=== PATIENT | male | born 1990 | race Caucasian/White ===

== ENCOUNTER 2024-04-13 09:51 | Emergency (ER) | payer MEDICAID, SELFPAY ==
[2024-04-13 10:16] VITALS: BP 106/63; PULSE 99; RESP 16; TEMP 36.8; O2SAT 98
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
[2024-04-13 10:43] LABS: Appearance Urine Clear (Clear); Bilirubin Urine Negative (Negative); Blood Urine Negative (Negative); Color Urine Yellow (Yellow); Glucose Urine Negative (Negative); Ketones Urine Negative (Negative); Leukocyte Esterase Urine Negative (Negative); Nitrite Urine Negative (Negative); Protein Urine 2+ (Negative); Specific Gravity Urine >= 1.030 (1.000-1.030); Urobilinogen Urine 0.2 (0.2-1.0); pH Urine 5.5 (5.0-8.5)
[2024-04-13 11:06] LABS: RBC Urine 0-2 (0-2); WBC Urine 0-2 (0-5)
[2024-04-13 11:24] LABS: Basophils Absolute Auto 0.05 K/uL (0.00-0.30); Basophils Percent Auto 0.9 % (0.0-3.0); Eosinophils Absolute Auto 0.08 K/uL (0.00-0.50); Eosinophils Percent Auto 1.4 % (0.0-7.0); Hematocrit 38.9 % (37.0-53.0); Hemoglobin* 13.1 gm/dL (13.5-17.5); Immature Granulocytes Abs Auto 0.06 K/uL (0.00-0.30); Immature Granulocytes Pct Auto 1.1 %; Lymphocytes Percent Auto 19.7 % (20-44); Mean Corpuscular HGB Conc 34 gm/dL (32-36); Mean Corpuscular Hemoglobin 30 pg (26-34); Mean Corpuscular Volume 89 fL (80-100); Monocytes Percent Auto 8.5 % (0.0-11.0); Neutrophils Absolute Auto 3.85 K/uL (1.7-7.0); Neutrophils Percent Auto 68.4 % (42.0-72.0); Platelet Count* 314 K/uL (140-440); RDW Coefficient of Variation % 12.7 % (11.5-15.5); Red Blood Count 4.38 m/uL (4.30-5.90); White Blood Count* 5.63 K/uL (4.50-11.00)
[2024-04-13 11:29] LABS: Slide Review Reflex No
[2024-04-13 11:34] LABS: Albumin* 4.7 g/dL (3.3-5.0); Chloride* 98 mmol/L (96-114)
[2024-04-13 11:35] LABS: Potassium* 3.9 mmol/L (3.6-5.1); Sodium* 135 mmol/L (135-149)
[2024-04-13 11:37] LABS: Blood Urea Nitrogen* 18 mg/dL (5-24); Creatinine* 0.6 mg/dL (0.5-1.5); Estimated Glomerular Filt Rate 132 ml/min
[2024-04-13 11:38] LABS: Alanine Aminotransferase* 34 U/L (4-50); Alkaline Phosphatase* 60 U/L (40-150); Anion Gap 9 mEq/L (7-15); Aspartate Amino Transferase* 26 U/L (12-35); Bilirubin Direct* 0.1 mg/dL (0.0-0.5); Bilirubin Total* 0.5 mg/dL (0.1-1.5); Calcium* 9.6 mg/dL (8.4-10.6); Carbon Dioxide* 28 mmol/L (20-32); Glucose* 104 mg/dL (60-115); Lipase* 45 U/L (23-300); Total Protein* 7.3 g/dL (6.0-8.3)
[2024-04-13 11:41] LABS: C Reactive Protein* < 0.5 mg/dL (0.5-1.0)
[2024-04-13 13:02] LABS: Chlamydia DNA Amplified* NOT DETECTED (No Detected); GC DNA Amplified* NOT DETECTED (No Detected)
== END 2024-04-13 13:46 | disposition home or self-care (01) ==
PROVIDERS: Emergency Provider Family Medicine
DX: J04.0 Acute laryngitis (principal); R05.9 Cough, unspecified; R55 Syncope and collapse
CPT/HCPCS: 36415; 71046; 74018; 80048; 80076; 81001; 83690; 85025; 86140; 87491; 87591; 99284

== ENCOUNTER 2024-04-26 10:48 | Emergency (ER) | payer MEDICAID, SELFPAY ==
[2024-04-26 11:05] VITALS: BP 93/57; PULSE 96; RESP 18; TEMP 36.7; O2SAT 99
--- NOTE | 2024-04-26 11:46 | ED.GENADULT ---
HPI - General Adult General Time Seen by Provider: 11:46 Date Seen: 04/26/24 Chief complaint: Unspecified Complaint, Adult Stated complaint: Elevated BP, HR. bowel Time Seen by Provider: 04/26/24 11:45 Source: patient, RN notes reviewed and steward/stewardess second Mode of arrival: ambulatory Limitations: no limitations History of Present Illness HPI narrative: Gilberto yung is a very pleasant 33-year-old who is currently in our local recovery center for methamphetamine abuse who comes to the emergency room with difficulty urinating and having a bowel movement. He notes that his blood pressure has been up and that he tries to urinate every hour and there is only a little bit that comes out. He also notes that he has been trying to have a bowel movement but that only is a little bit as well. He did see a specialist after a previous visit in early April for the same symptoms. It does not sound like they really had much to change or offer. He does note that he had heartburn at that time and he is now on a medication and that seems to be better. I assume that is omeprazole listed in his chart. Hipolito notes that this has been ongoing for over a year. He does not have fever with this but has experienced to 20 kg weight loss. He does not think his belly is bloated although he says he had is not passing a lot of gas. He has not noticed any blood in his stool. He did try stool softener prescribed last time which he states is a powder. Yesterday his brought him some tablets which she stated were for constipation but he has not taken them yet. He denies painful urination and he has no abdominal pain, just the urge to defecate and urinate. Patient notes that he is in treatment for marijuana and methamphetamine abuse. He enter treatment 15 days ago. He had quit smoking cigarettes 2 years ago but has since restarted the cigarettes as he states they help him go to the bathroom. He notes he had had syphilis and gonorrhea previously but has been tested and is negative. I am unclear if he has had unprotected sex in the last 15 days despite asking. Related Data Previous Rx's ?Medication ?Instructions ?Recorded omeprazole 20 mg capsule,delayed 20 mg PO BID #60 caps 04/13/24 release polyethylene glycol 3350 17 17 g PO BID PRN #238 grams 04/13/24 gram/dose oral powder levofloxacin 500 mg tablet 500 mg PO DAILY #10 tabs 04/26/24 tamsulosin 0.4 mg capsule (Flomax) 0.4 mg PO QHS #30 caps 04/26/24 Allergies Allergy/AdvReac Type Severity Reaction Status Date / Time No Known Drug Allergies Allergy Verified 04/26/24 14:45 Review of Systems Status of ROS: Reports: 10 or more systems reviewed and unremarkable except as noted in History and below Const: Reports: change in weight; Denies: fever, chills or fatigue Eyes: Denies: change in vision ENMT: Denies: throat pain, neck pain or nasal congestion Cardio: Denies: chest pain, palpitations, swelling of feet/ankles, lightheadedness or shortness of breath with exertion Resp: Reports: cough (Chronic); Denies: shortness of breath GI: Reports: nausea, heartburn (Improved) and constipation; Denies: abdominal pain, vomiting, diarrhea or blood in stool : Reports: urinary frequency and urinary urgency; Denies: painful urination or blood in urine Musculo: Denies: back pain or neck pain Integ/Breast: Denies: rash Neuro: Denies: headache Endo: Denies: fatigue PFSH PFSH Social History Smoking Status: Current some day smoker What tobacco products do you use: cigarettes How often do you have a drink containing alcohol: never AUDIT-C Alcohol total score: 0 Non-prescribed substance use: former substance user Exam Narrative: Exam Narrative: Alert and oriented. We performed this interview with the assistance of steward/stewardess second. EOM is full and pupils equal round. Face symmetrical. No acute distress. Neck is supple. Heart with a regular rate and rhythm and lungs are clear. Abdomen is soft nontender. No masses are palpated. Moving all extremities. Prostate exam without evidence of bogginess, significant discomfort or nodules. Const: Vital Signs, click to edit/add: Vital Signs - 24 hr 04/26/24 11:05 04/26/24 14:09 04/26/24 16:48 Temperature 98.0 F Pulse Rate 93 91 Pulse Rate [Right] 96 Respiratory Rate 18 16 14 Blood Pressure 141/103 H 137/100 H Blood Pressure [Ri ght Upper Arm] 93/57 L Pulse Oximetry 99 95 98 Oxygen Delivery Me thod Room Air Room Air Documenting provider has reviewed patient's vital signs: yes Course Course ED Course: Differential diagnosis includes but is not limited to prostatitis, UTI, anxiety, constipation, GI illness. At this time will check electrolytes, give 1 L of fluid is blood pressure is actually known not high as he initially complained of, check urinalysis, recheck gonorrhea and chlamydia, considering abdominal/pelvic CT with IV contrast. Plan on check of prostate. I did explain the procedure for this with Hipolito. He is agreeable to this Reevaluation(s) Reevaluation #1: Prostate exam does not show significant enlargement or any masses. Post void bladder ultrasound shows greater than 250 mL. At this time will proceed with the CT of the abdomen and consult with urology. Reevaluation #2: CT of the abdomen is reassuring and is not show any evidence of constipation. Repeat postvoid bladder ultrasound shows 227 mL. Consultations Consultation #1: At the pleasure of speaking with [facility]rology at [facility]. Agrees with initiation of antibiotic for possible UTI and or prostatitis. Also suggest use of Flomax. Also suggest follow-up with urology. Vital Signs Vital signs: Initial Vital Signs Temperature 98.0 F 04/26/24 11:05 Temperature Source Temporal Artery Scan 04/26/24 11:05 Pulse Rate 96 04/26/24 11:05 Respiratory Rate 18 04/26/24 11:05 Blood Pressure 93/57 L 04/26/24 11:05 Blood Pressure Mean 69 L 04/26/24 11:05 Pulse Oximetry 99 04/26/24 11:05 Oxygen Delivery Method Room Air 04/26/24 11:05 Vital Signs Temperature 98.0 F 04/26/24 11:05 Pulse Rate 96 04/26/24 11:05 Respiratory Rate 18 04/26/24 11:05 Blood Pressure 93/57 L 04/26/24 11:05 Pulse Oximetry 99 04/26/24 11:05 Oxygen Delivery Method Room Air 04/26/24 11:05 Temperature 98.0 F 04/26/24 11:05 Pulse Rate 91 04/26/24 16:48 Respiratory Rate 14 04/26/24 16:48 Blood Pressure 137/100 H 04/26/24 16:48 Pulse Oximetry 98 04/26/24 16:48 Oxygen Delivery Method Room Air 04/26/24 16:48 Medications Administered Medications: Discontinued Medications Generic Name Dose Route Start Last Admin Trade Name Jani PRN Reason Stop Dose Admin Levofloxacin 500 mg 04/26/24 16:07 04/26/24 16:35 Levofloxacin 500 Mg Tablet PO 04/26/24 16:08 500 mg ONCE ONE Administration Tamsulosin HCl 0.4 mg 04/27/24 09:00 04/26/24 16:35 Tamsulosin Hcl 0.4 Mg Capsule PO 0.4 mg DAILY XIANG Administration Medical Decision Making MDM Narrative Medical decision making narrative: 1. Urinary retention- at this time urinalysis does not show evidence of UTI but patient certainly is describing urgency frequency and I am wondering if we are actually dealing with a prostatitis. Culture will be pending. Will treat with Levaquin 500 mg daily for 10 days and Flomax 0.4 mg daily for 30 days. Patient will need to follow-up with urology as he may need cystoscopy to rule out any urinary stricture. He is agreeable to this. 2. Constipation -No evidence of constipation today. However previously he did and therefore I request that he continue MiraLax as directed. 3. History of STI -chlamydia and gonorrhea repeated today and are pending. addendum: Negative for chlamydia gonorrhea 4. History of methamphetamine and marijuana abuse- currently a resident at treatment center here in [place]. U tox is negative today. 5. Disposition -home at this time. Note that staff member from the treatment center was here and Hipolito requested that this staff member do interpretation for him. I did ask if he wanted privacy but he felt that it was fine to talk freely in front of this person. Return for worsening symptoms and as needed. Medical Records Medical records reviewed: Yes I reviewed the patient's medical records Lab Data Lab results reviewed: Yes I reviewed the patient's lab results Labs: Lab Results 04/26/24 04/26/24 04/26/24 Range/Units 12:39 13:00 13:03 WBC 4.94 (4.50-11.00) K/uL RBC 4.41 (4.30-5.90) m/uL Hgb 13.1 L (13.5-17.5) gm/dL Hct 38.7 (37.0-53.0) % MCV 88 (80-100) fL MCH 30 (26-34) pg MCHC 34 (32-36) gm/dL RDW Coeff of Luciano 12.4 (11.5-15.5) % Plt Count 312 (140-440) K/uL Neut % (Auto) 64.2 (42.0-72.0) % Lymph % (Auto) 25.1 (20-44) % Waldo % (Auto) 7.9 (0.0-11.0) % Eos % (Auto) 1.6 (0.0-7.0) % Baso % (Auto) 1.0 (0.0-3.0) % Neut # (Auto) 3.17 (1.7-7.0) K/uL Lymph # (Auto) 1.24 (0.90-2.90) K/uL Waldo # (Auto) 0.40 (0.00-0.90) K/UL Eos # (Auto) 0.08 (0.00-0.50) K/uL Baso # (Auto) 0.05 (0.00-0.30) K/uL Abs Immat Gran (auto) 0.01 (0.00-0.30) K/uL Imm/Tot Granulo (auto) 0.2 % Sodium 133 L (135-149) mmol/L Potassium 4.1 (3.6-5.1) mmol/L Chloride 95 L (96-114) mmol/L Carbon Dioxide 32 (20-32) mmol/L Anion Gap 6 L (7-15) mEq/L BUN 19 (5-24) mg/dL Creatinine 0.7 (0.5-1.5) mg/dL Estimated GFR 126 ml/min Glucose 99 (60-115) mg/dL Calcium 9.4 (8.4-10.6) mg/dL Total Bilirubin 0.7 (0.1-1.5) mg/dL AST 19 (12-35) U/L ALT 15 (4-50) U/L Alkaline Phosphatase 54 (40-150) U/L Total Protein 7.4 (6.0-8.3) g/dL Albumin 4.6 (3.3-5.0) g/dL TSH 0.369 (0.270-4.20) uIU/mL Urine Color Light yellow (Yellow) Urine Appearance Clear (Clear) Urine pH 7.0 (5.0-8.5) Ur Specific [place] 1.015 (1.000-1.030) Urine Protein Negative (Negative) Urine Glucose (UA) Negative (Negative) Urine Ketones Negative (Negative) Urine Blood Negative (Negative) Urine Nitrite Negative (Negative) Urine Bilirubin Negative (Negative) Urine Urobilinogen 0.2 (0.2-1.0) Ur Leukocyte Esterase Negative (Negative) Urine RBC 0-2 (0-2) Urine WBC 0-2 (0-5) Ur Squamous Epith Cells None (None-Few) Urine Bacteria None (None) Urine Opiates Screen Negative (Negative) Ur Oxycodone Screen Negative (Negative) Urine Methadone Screen Negative (Negative) Ur Barbiturates Screen Negative (Negative) U Tricyclic Antidepress Negative (Negative) Ur Phencyclidine Scrn Negative (Negative) Ur Amphetamines Screen Negative (Negative) U Methamphetamines Scrn Negative (Negative) U Benzodiazepines Scrn Negative (Negative) Urine Cocaine Screen Negative (Negative) U Marijuana (THC) Screen Negative (Negative) Ur Drug Screen Comment See Note C.trachomatis Ampl DNA NOT DETECTED (No Detected) N.gonorrhoeae Ampl DNA NOT DETECTED (No Detected) Lab Acknowledgement Test Added Imaging Data CT scan - abdomen: Attestation: I have reviewed the pertinent imaging results. My impression: I do not note any acute findings Radiologist's impression: Lower chest: Unremarkable. Liver: Fatty infiltration. Otherwise unremarkable. Gallbladder and bile ducts: Unremarkable. No stones or inflammation. No biliary dilatation. Pancreas: Unremarkable. No mass or inflammation. Spleen: Unremarkable. Normal in size. No masses. Adrenal glands: Unremarkable. No nodules. Kidneys: Unremarkable. No suspicious masses, stones, or hydronephrosis. GI tract: Unremarkable. Normal in caliber. No sign of mass or inflammation. Normal appendix. Vasculature: Abdominal aorta is normal in caliber. Mesenteric arteries are patent. Lymph nodes: No lymphadenopathy. Peritoneum/Abdominal Wall: Unremarkable. No sign of mass or infiltration. No free air or significant free fluid. Pelvis: Unremarkable. Bones: Unremarkable for age. IMPRESSION: Normal CT of the abdomen and pelvis. Bowel pattern is normal. No signs of constipation. Discharge Plan Discharge Clinical Impression: Urinary retention Patient Disposition: Home, Self-Care Condition: Improved Additional Instructions: We will have you start a medicine called Flomax-this should help you urinate and empty your bladder. We will also do a trial of antibiotics for the treatment of a possible UTI although your urinalysis looks good today. Levaquin 500 mg daily for 10 days will be used for treatment of possible UTI or prostate infection. Flomax will be used to help improve urinary flow. First doses of both of these medications are given in the ER and the remainders will be sent to the [place] pharmacy. You will need to follow-up with a urologist a specialist in the urinary system. If are medicines do not help improve the situation you may need to have a urologist actually look up through the penis and urethra into the bladder. [facility] could help you out with this as well as [facility]. There is no constipation noted on your CT but I would continue your stool softeners at this time. Return as needed for worsening symptoms. Prescriptions: New levofloxacin 500 mg tablet 500 mg PO DAILY Qty: 10 0RF tamsulosin [Flomax] 0.4 mg capsule 0.4 mg PO QHS Qty: 30 2RF No Action omeprazole 20 mg capsule,delayed release(DR/EC) 20 mg PO BID Qty: 60 2RF polyethylene glycol 3350 17 gram/dose powder 17 g PO BID PRNQty: 238 1RF Follow Up/Referrals: Provider,Not a Local [Primary Care Provider] - Stand Alone Forms: [facility] Info Instructions
[2024-04-26 13:09] LABS: Basophils Absolute Auto 0.05 K/uL (0.00-0.30); Eosinophils Absolute Auto 0.08 K/uL (0.00-0.50); Eosinophils Percent Auto 1.6 % (0.0-7.0); Hematocrit 38.7 % (37.0-53.0); Hemoglobin* 13.1 gm/dL (13.5-17.5); Immature Granulocytes Abs Auto 0.01 K/uL (0.00-0.30); Immature Granulocytes Pct Auto 0.2 %; Lymphocytes Absolute Auto 1.24 K/uL (0.90-2.90); Lymphocytes Percent Auto 25.1 % (20-44); Mean Corpuscular HGB Conc 34 gm/dL (32-36); Mean Corpuscular Hemoglobin 30 pg (26-34); Mean Corpuscular Volume 88 fL (80-100); Monocytes Percent Auto 7.9 % (0.0-11.0); Neutrophils Absolute Auto 3.17 K/uL (1.7-7.0); Neutrophils Percent Auto 64.2 % (42.0-72.0); Platelet Count* 312 K/uL (140-440); RDW Coefficient of Variation % 12.4 % (11.5-15.5); Red Blood Count 4.41 m/uL (4.30-5.90); White Blood Count* 4.94 K/uL (4.50-11.00)
[2024-04-26 13:13] LABS: Slide Review Reflex No
[2024-04-26 13:27] LABS: Appearance Urine Clear (Clear); Bilirubin Urine Negative (Negative); Blood Urine Negative (Negative); Color Urine Light yellow (Yellow); Glucose Urine Negative (Negative); Ketones Urine Negative (Negative); Leukocyte Esterase Urine Negative (Negative); Nitrite Urine Negative (Negative); Protein Urine Negative (Negative); Specific Gravity Urine 1.015 (1.000-1.030); Urobilinogen Urine 0.2 (0.2-1.0)
[2024-04-26 13:30] LABS: Albumin* 4.6 g/dL (3.3-5.0); Chloride* 95 mmol/L (96-114)
[2024-04-26 13:31] LABS: Potassium* 4.1 mmol/L (3.6-5.1); Sodium* 133 mmol/L (135-149)
[2024-04-26 13:33] LABS: Anion Gap 6 mEq/L (7-15); Aspartate Amino Transferase* 19 U/L (12-35); Bilirubin Total* 0.7 mg/dL (0.1-1.5); Blood Urea Nitrogen* 19 mg/dL (5-24); Carbon Dioxide* 32 mmol/L (20-32); Creatinine* 0.7 mg/dL (0.5-1.5); Estimated Glomerular Filt Rate 126 ml/min
[2024-04-26 13:34] LABS: Amphetamine Screen Urine Negative (Negative); Barbiturate Screen Urine Negative (Negative); Benzodiazepines Screen Urine Negative (Negative); Cannabinoid Screen Urine Negative (Negative); Cocaine Screen Urine Negative (Negative); Methadone Screen Urine Negative (Negative); Methamphetamines Screen Urine Negative (Negative); Opiate Screen Urine Negative (Negative); Oxycodone Screen Urine Negative (Negative); Phencyclidine Screen Urine Negative (Negative); Tricyclic Antidepressant Urine Negative (Negative)
[2024-04-26 13:34] LABS: Alanine Aminotransferase* 15 U/L (4-50); Alkaline Phosphatase* 54 U/L (40-150); Calcium* 9.4 mg/dL (8.4-10.6); Glucose* 99 mg/dL (60-115); Total Protein* 7.4 g/dL (6.0-8.3)
[2024-04-26 13:37] LABS: RBC Urine 0-2 (0-2); WBC Urine 0-2 (0-5)
[2024-04-26 14:05] LABS: Thyroid Stimulating Hormone* 0.369 uIU/mL (0.270-4.20)
[2024-04-26 14:09] VITALS: BP 141/103; PULSE 93; RESP 16; O2SAT 95
--- NOTE | 2024-04-26 14:20 | CRLHL7_ITS ---
For Patients: As a result of the Century Cures Act, medical imaging exams and procedure reports are released immediately into your electronic medical record. You may view this report before your referring provider. If you have questions, please contact your health care provider. INDICATION: Inability to defecate. TECHNIQUE: CT abdomen and pelvis acquired with 71 cc Isovue 370 IV contrast. COMPARISON: None. FINDINGS: Lower chest: Unremarkable. Liver: Fatty infiltration. Otherwise unremarkable. Gallbladder and bile ducts: Unremarkable. No stones or inflammation. No biliary dilatation. Pancreas: Unremarkable. No mass or inflammation. Spleen: Unremarkable. Normal in size. No masses. Adrenal glands: Unremarkable. No nodules. Kidneys: Unremarkable. No suspicious masses, stones, or hydronephrosis. GI tract: Unremarkable. Normal in caliber. No sign of mass or inflammation. Normal appendix. Vasculature: Abdominal aorta is normal in caliber. Mesenteric arteries are patent. Lymph nodes: No lymphadenopathy. Peritoneum/Abdominal Wall: Unremarkable. No sign of mass or infiltration. No free air or significant free fluid. Pelvis: Unremarkable. Bones: Unremarkable for age. IMPRESSION: Normal CT of the abdomen and pelvis. Bowel pattern is normal. No signs of constipation. Please note that all CT scans at this facility use dose modulation, iterative reconstruction, and/or weight-based dosing when appropriate to reduce radiation dose to as low as reasonably achievable. Dictated by Eric Redman MD @ 04/26/2024 3:12:56 PM (Electronically Signed)
[2024-04-26] MEDS: TAMSULOSIN HCL 0.4 MG CAPSULE PO (16:35)
[2024-04-26] MEDS: levoFLOXacin 500 MG TABLET PO (16:35)
[2024-04-26 16:48] VITALS: BP 137/100; PULSE 91; RESP 14; O2SAT 98
[2024-04-26 18:30] LABS: Chlamydia DNA Amplified* NOT DETECTED (No Detected); GC DNA Amplified* NOT DETECTED (No Detected)
== END 2024-04-26 16:55 | disposition home or self-care (01) ==
PROVIDERS: Emergency Provider Family Medicine
DX: R33.9 Retention of urine, unspecified (principal); K59.00 Constipation, unspecified
CPT/HCPCS: 36415; 51798; 74177; 80053; 80306; 81001; 84443; 85025; 87491; 87591; 99284; A9270; Q9967

== ENCOUNTER 2024-05-05 15:14 | Emergency (ER) | payer MEDICAID, SELFPAY ==
[2024-05-05 15:41] VITALS: BP 97/61; PULSE 92; RESP 18; TEMP 37; O2SAT 99; BMI 26.6
--- NOTE | 2024-05-05 15:52 | ED.ABDPAIN ---
HPI - Abdominal Pain General Time Seen by Provider: 15:53 Date Seen: 05/05/24 Chief Complaint: Abdominal Pain Stated Complaint: Abdominal pain Time Seen by Provider: 05/05/24 15:52 Source: patient Mode of arrival: ambulatory Limitations: no limitations Related Data Previous Rx's ?Medication ?Instructions ?Recorded omeprazole 20 mg capsule,delayed 20 mg PO BID #60 caps 04/13/24 release polyethylene glycol 3350 17 17 g PO BID PRN #238 grams 04/13/24 gram/dose oral powder levofloxacin 500 mg tablet 500 mg PO DAILY #10 tabs 04/26/24 tamsulosin 0.4 mg capsule (Flomax) 0.4 mg PO QHS #30 caps 04/26/24 Allergies Allergy/AdvReac Type Severity Reaction Status Date / Time No Known Drug Allergies Allergy Verified 04/26/24 14:45 PFSH PFSH Social History Smoking Status: Current some day smoker What tobacco products do you use: cigarettes How often do you have a drink containing alcohol: never AUDIT-C Alcohol total score: 0 Non-prescribed substance use: former substance user Exam Const: Vital Signs, click to edit/add: Vital Signs - 24 hr 05/05/24 15:41 Temperature 98.6 F Pulse Rate [Right Pulse Oximeter] 92 Respiratory Rate 18 Blood Pressure [Le ft Upper Arm] 97/61 Pulse Oximetry 99 Oxygen Delivery Me thod Room Air Course Vital Signs Vital signs: Initial Vital Signs Temperature 98.6 F 05/05/24 15:41 Temperature Source Temporal Artery Scan 05/05/24 15:41 Pulse Rate 92 05/05/24 15:41 Pulse Rhythm Regular 05/05/24 15:41 Pulse Strength 3+ Normal 05/05/24 15:41 Respiratory Rate 18 05/05/24 15:41 Blood Pressure 97/61 05/05/24 15:41 Blood Pressure Mean 73 05/05/24 15:41 Blood Pressure Position Sitting 05/05/24 15:41 Pulse Oximetry 99 05/05/24 15:41 Oxygen Delivery Method Room Air 05/05/24 15:41 Vital Signs Temperature 98.6 F 05/05/24 15:41 Pulse Rate 92 05/05/24 15:41 Respiratory Rate 18 05/05/24 15:41 Blood Pressure 97/61 05/05/24 15:41 Pulse Oximetry 99 05/05/24 15:41 Oxygen Delivery Method Room Air 05/05/24 15:41 Temperature 98.6 F 05/05/24 15:41 Pulse Rate 92 05/05/24 15:41 Respiratory Rate 18 05/05/24 15:41 Blood Pressure 97/61 05/05/24 15:41 Pulse Oximetry 99 05/05/24 15:41 Oxygen Delivery Method Room Air 05/05/24 15:41 Discharge Plan Discharge Prescriptions: No Action levofloxacin 500 mg tablet 500 mg PO DAILY Qty: 10 0RF tamsulosin [Flomax] 0.4 mg capsule 0.4 mg PO QHS Qty: 30 2RF omeprazole 20 mg capsule,delayed release(DR/EC) 20 mg PO BID Qty: 60 2RF polyethylene glycol 3350 17 gram/dose powder 17 g PO BID PRNQty: 238 1RF Follow Up/Referrals: Provider,Not a Local [Primary Care Provider] -
--- NOTE | 2024-05-05 16:27 | CRLHL7_ITS ---
For Patients: As a result of the Century Cures Act, medical imaging exams and procedure reports are released immediately into your electronic medical record. You may view this report before your referring provider. If you have questions, please contact your health care provider. INDICATION: Constipation TECHNIQUE: Abdomen Pelvis radiograph 2 views COMPARISON: 04/13/2024 FINDINGS: Bowel: The bowel gas pattern is normal without evidence of bowel obstruction. The pow pelvis is exclude and partially shows an overlying metallic zipper. Soft tissue: No evidence of pneumoperitoneum present. No suspicious calcifications noted. Bone: Unremarkable for age. IMPRESSION: 1. Unremarkable appearance of the visualized abdomen. Dictated by: Akshat Borrero MD @ 05/05/2024 17:26:21 (Electronically Signed)
--- NOTE | 2024-05-05 16:28 | ED.ABDPAIN ---
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 He was seen in this ED for the same symptoms 9 days ago. Was shown to have urinary retention at that time. He was started on antibiotic for possible prostatitis along with Flomax. Did not show any obvious signs of constipation on CT scan. Was discharged home any states he has not had any changes to his symptoms. He still is only having small bowel movements and is urinating every hour due to not emptying his bladder. The symptoms have been going on for 6 weeks now he states. he was supposed to follow-up with urology but has been unable to so far. Is working on getting in with [facility]. States he smokes a cigarette every morning because that makes him vomit and empties his stomach. Will have nausea throughout the day. Does not noticing changes the symptoms when eating or drinking. Does state he a coughing fit today the induced abdominal cramping that has since resolved. Denies fevers, chills, chest pain, shortness of breath, lightheadedness, dizziness. Related Data Previous Rx's ?Medication ?Instructions ?Recorded omeprazole 20 mg capsule,delayed 20 mg PO BID #60 caps 04/13/24 release polyethylene glycol 3350 17 17 g PO BID PRN #238 grams 04/13/24 gram/dose oral powder levofloxacin 500 mg tablet 500 mg PO DAILY #10 tabs 04/26/24 tamsulosin 0.4 mg capsule (Flomax) 0.4 mg PO QHS #30 caps 04/26/24 ondansetron 4 mg disintegrating 4 mg PO Q6H #20 tabs 05/05/24 tablet Allergies Allergy/AdvReac Type Severity Reaction Status Date / Time No Known Drug Allergies Allergy Verified 04/26/24 14:45 Review of Systems Status of ROS Reports: 10 or more systems reviewed and unremarkable except as noted in History and below PFSH PFSH Social History Smoking Status: Current some day smoker What tobacco products do you use: cigarettes How often do you have a drink containing alcohol: never AUDIT-C Alcohol total score: 0 Non-prescribed substance use: former substance user Exam Narrative: Exam Narrative: Const: Well-nourished, Well-developed, in mild distress Eyes: PERRL, no conjunctival injection, and symmetrical lids HENT: Atraumatic external nose and ears. Moist mucous membranes. Neck: Symmetric, trachea midline, No thyromegaly. CVS: RRR, No murmurs or gallops. Peripheral pulses 2+ and equal in all extremities RESP: Unlabored respiratory effort. Clear to auscultation bilaterally. GI: Mild diffuse abdominal tenderness,Nondistended, No rebound or guarding. MSK:Extremities w/o deformity, Normal Active ROM Skin: Warm, Dry. No rashes or lesions. Neuro: Normal Muscle tone, No focal neurological deficits. Psych: Awake, Alert, & Oriented x3. Appropriate mood and affect. Const: Vital Signs, click to edit/add: Vital Signs - 24 hr 05/05/24 15:41 Temperature 98.6 F Pulse Rate [Right Pulse Oximeter] 92 Respiratory Rate 18 Blood Pressure [Le ft Upper Arm] 97/61 Pulse Oximetry 99 Oxygen Delivery Me thod Room Air Course Vital Signs Vital signs: Initial Vital Signs Temperature 98.6 F 05/05/24 15:41 Temperature Source Temporal Artery Scan 05/05/24 15:41 Pulse Rate 92 05/05/24 15:41 Pulse Rhythm Regular 05/05/24 15:41 Pulse Strength 3+ Normal 05/05/24 15:41 Respiratory Rate 18 05/05/24 15:41 Blood Pressure 97/61 05/05/24 15:41 Blood Pressure Mean 73 05/05/24 15:41 Blood Pressure Position Sitting 05/05/24 15:41 Pulse Oximetry 99 05/05/24 15:41 Oxygen Delivery Method Room Air 05/05/24 15:41 Vital Signs Temperature 98.6 F 05/05/24 15:41 Pulse Rate 92 05/05/24 15:41 Respiratory Rate 18 05/05/24 15:41 Blood Pressure 97/61 05/05/24 15:41 Pulse Oximetry 99 05/05/24 15:41 Oxygen Delivery Method Room Air 05/05/24 15:41 Temperature 98.6 F 05/05/24 15:41 Pulse Rate 92 05/05/24 15:41 Respiratory Rate 18 05/05/24 15:41 Blood Pressure 97/61 05/05/24 15:41 Pulse Oximetry 99 05/05/24 15:41 Oxygen Delivery Method Room Air 05/05/24 15:41 MDM - Abdominal Pain MDM Narrative Medical decision making narrative: patient is a 33-year-old male presenting for abdominal pain, polyuria, constipation. He was seen here for the same symptoms Last week. At time CT scan was done showing no concerning abnormalities. There is concerned he could have prostatitis so he was started on antibiotics. Was told to continue take MiraLax and was informed he has a follow-up with Urology. He has not been able follow-up yet. At this time I will check a urinalysis, CBC, CMP along with doing a abdominal x-ray. I do not believe it is needed to do a repeat CT scan as will be unnecessary radiation for patient of this age who just had a CT scan for similar symptoms. We did do a pre and postvoid bladder scan he went from 250 mL to about 75-100 mL. He is having some mild retention but will hold off on placing a Dickinson at this time. X-ray reviewed by myself and the radiologist shows no concerning abnormalities. Only some mild constipation to the right upper quadrant. Patient will be discharged with Zofran for his nausea. Lab work shows no concerning abnormalities. Informed him again the importance of follow-up. He states he understands. Lab Data Labs: Lab Results 05/05/24 05/05/24 Range/Units 16:35 16:58 WBC 5.48 (4.50-11.00) K/uL RBC 4.28 L (4.30-5.90) m/uL Hgb 13.0 L (13.5-17.5) gm/dL Hct 38.3 (37.0-53.0) % MCV 90 (80-100) fL MCH 30 (26-34) pg MCHC 34 (32-36) gm/dL RDW Coeff of Luciano 12.3 (11.5-15.5) % Plt Count 297 (140-440) K/uL Neut % (Auto) 60.9 (42.0-72.0) % Lymph % (Auto) 25.9 (20-44) % Floyd % (Auto) 9.7 (0.0-11.0) % Eos % (Auto) 2.4 (0.0-7.0) % Baso % (Auto) 0.9 (0.0-3.0) % Neut # (Auto) 3.34 (1.7-7.0) K/uL Lymph # (Auto) 1.42 (0.90-2.90) K/uL Floyd # (Auto) 0.50 (0.00-0.90) K/UL Eos # (Auto) 0.13 (0.00-0.50) K/uL Baso # (Auto) 0.05 (0.00-0.30) K/uL Abs Immat Gran (auto) 0.01 (0.00-0.30) K/uL Imm/Tot Granulo (auto) 0.2 % Sodium 135 (135-149) mmol/L Potassium 4.3 (3.6-5.1) mmol/L Chloride 100 (96-114) mmol/L Carbon Dioxide 29 (20-32) mmol/L Anion Gap 6 L (7-15) mEq/L BUN 21 (5-24) mg/dL Creatinine 1.0 (0.5-1.5) mg/dL Estimated Creat Clear 102.60 Estimated GFR 103 ml/min Glucose 92 (60-115) mg/dL Calcium 9.2 (8.4-10.6) mg/dL Total Bilirubin 0.4 (0.1-1.5) mg/dL AST 27 (12-35) U/L ALT 20 (4-50) U/L Alkaline Phosphatase 55 (40-150) U/L Total Protein 7.1 (6.0-8.3) g/dL Albumin 4.7 (3.3-5.0) g/dL Urine Color Yellow (Yellow) Urine Appearance Slightly Cloudy A (Clear) Urine pH 6.0 (5.0-8.5) Ur Specific [place] >= 1.030 (1.000-1.030) Urine Protein Negative (Negative) Urine Glucose (UA) Negative (Negative) Urine Ketones Negative (Negative) Urine Blood Negative (Negative) Urine Nitrite Negative (Negative) Urine Bilirubin Negative (Negative) Urine Urobilinogen 0.2 (0.2-1.0) Ur Leukocyte Esterase Negative (Negative) Urine RBC 0-2 (0-2) Urine WBC 0-2 (0-5) Ur Squamous Epith Cells None (None-Few) Urine Bacteria None (None) Imaging Data Abdominal x-ray: Attestation: I have reviewed the pertinent imaging results. Radiologist's impression: 1. Unremarkable appearance of the visualized abdomen. Dictated by: Akshat Borrero MD @ 05/05/2024 17:26:21 Discharge Plan Discharge Clinical Impression: Urinary retention Patient Disposition: Home, Self-Care Condition: Stable Instructions: Urinary Retention in Men (ED) Additional Instructions: Make sure you continue to take the MiraLax at home. You will need to follow-up with [facility] and [facility]rology. may use the Zofran as needed for nausea. Prescriptions: New ondansetron 4 mg tablet,disintegrating 4 mg PO Q6H Qty: 20 0RF No Action levofloxacin 500 mg tablet 500 mg PO DAILY Qty: 10 0RF tamsulosin [Flomax] 0.4 mg capsule 0.4 mg PO QHS Qty: 30 2RF omeprazole 20 mg capsule,delayed release(DR/EC) 20 mg PO BID Qty: 60 2RF polyethylene glycol 3350 17 gram/dose powder 17 g PO BID PRNQty: 238 1RF Follow Up/Referrals: Provider,Not a Local [Primary Care Provider] - Stand Alone Forms: [facility] Info Instructions
[2024-05-05 16:46] LABS: Appearance Urine Slightly Cloudy (Clear); Bilirubin Urine Negative (Negative); Blood Urine Negative (Negative); Color Urine Yellow (Yellow); Glucose Urine Negative (Negative); Ketones Urine Negative (Negative); Leukocyte Esterase Urine Negative (Negative); Nitrite Urine Negative (Negative); Protein Urine Negative (Negative); Specific Gravity Urine >= 1.030 (1.000-1.030); Urobilinogen Urine 0.2 (0.2-1.0)
[2024-05-05 17:03] LABS: RBC Urine 0-2 (0-2); WBC Urine 0-2 (0-5)
[2024-05-05 17:10] LABS: Basophils Absolute Auto 0.05 K/uL (0.00-0.30); Basophils Percent Auto 0.9 % (0.0-3.0); Eosinophils Absolute Auto 0.13 K/uL (0.00-0.50); Eosinophils Percent Auto 2.4 % (0.0-7.0); Hematocrit 38.3 % (37.0-53.0); Immature Granulocytes Abs Auto 0.01 K/uL (0.00-0.30); Immature Granulocytes Pct Auto 0.2 %; Lymphocytes Absolute Auto 1.42 K/uL (0.90-2.90); Lymphocytes Percent Auto 25.9 % (20-44); Mean Corpuscular HGB Conc 34 gm/dL (32-36); Mean Corpuscular Hemoglobin 30 pg (26-34); Mean Corpuscular Volume 90 fL (80-100); Monocytes Percent Auto 9.7 % (0.0-11.0); Neutrophils Absolute Auto 3.34 K/uL (1.7-7.0); Neutrophils Percent Auto 60.9 % (42.0-72.0); Platelet Count* 297 K/uL (140-440); RDW Coefficient of Variation % 12.3 % (11.5-15.5); Red Blood Count 4.28 m/uL (4.30-5.90); White Blood Count* 5.48 K/uL (4.50-11.00)
[2024-05-05 17:16] LABS: Slide Review Reflex No
[2024-05-05 17:18] LABS: Chloride* 100 mmol/L (96-114)
[2024-05-05 17:19] LABS: Albumin* 4.7 g/dL (3.3-5.0); Potassium* 4.3 mmol/L (3.6-5.1); Sodium* 135 mmol/L (135-149)
[2024-05-05 17:21] LABS: Blood Urea Nitrogen* 21 mg/dL (5-24); Estimated Glomerular Filt Rate 103 ml/min
[2024-05-05 17:22] LABS: Alanine Aminotransferase* 20 U/L (4-50); Alkaline Phosphatase* 55 U/L (40-150); Anion Gap 6 mEq/L (7-15); Aspartate Amino Transferase* 27 U/L (12-35); Bilirubin Total* 0.4 mg/dL (0.1-1.5); Calcium* 9.2 mg/dL (8.4-10.6); Carbon Dioxide* 29 mmol/L (20-32); Glucose* 92 mg/dL (60-115); Total Protein* 7.1 g/dL (6.0-8.3)
--- NOTE | 2024-05-05 18:36 | ED.NURSE ---
Patient given information and pamphlet to make appointments with [facility].
== END 2024-05-05 18:35 | disposition home or self-care (01) ==
PROVIDERS: Emergency Provider Student in an Organized Health Care Education/Training Program
DX: R33.9 Retention of urine, unspecified (principal)
CPT/HCPCS: 36415; 74018; 80053; 81001; 85025; 99283; 99284